=== PATIENT | male | born 1940 | race Caucasian/White ===

== ENCOUNTER → 2017-01-13 | Outpatient (CLI) | payer BC ==
[2017-01-13 15:14] LABS: BUN/CREATININE RATIO 16.66 (6-20); CALCIUM 9.4 mg/dL (8.7-10.7); SERUM ALBUMIN 4.3 g/dL (3.5-4.8)
[2017-01-13 15:15] LABS: CHOL/HDL RATIO 3.06 RATIO (0-4.0)
[2017-01-13 15:17] LABS: HEMOGLOBIN A1C 6.19 % (4.2-6.0)
[2017-01-13 15:58] LABS: CREATININE, URINE 37.5 MG/DL (15-500)
[2017-01-15 11:30] LABS: PSATOTAL 4.2 ng/mL (<=6.5)
[2017-01-15 13:51] LABS: FREE PSA/PSA RATIO 0.48 ratio (())
== END ==
LOC: LAB 08:25
PROVIDERS: ATTEND Internal Medicine
DX: E11.9 Type 2 diabetes mellitus without complications (principal); I10 Essential (primary) hypertension; E78.5 Hyperlipidemia, unspecified; N40.0 Benign prostatic hyperplasia without lower urinary tract symptoms; F17.200 Nicotine dependence, unspecified, uncomplicated
CPT/HCPCS: 80053; 80061; 82043; 82550; 83036; 84153; 84154

== ENCOUNTER 2017-01-18 09:41 | Day surgery (SDC) | payer BC, OTHER ==
[~2017-01-18 09:41] MED LIST: LIDOCAINE 2% VISCOUS(20 MG/1 ML) - 15 ML UD CUP PO ONE; LIDOCAINE W/ SODIUM BICARB 0.5 ML SYR ONE; Lactated Ringers 1,000 ML PRIMARY IV ONE
[2017-01-18] MEDS ORDERED: LIDOCAINE HCL/PF 2% (20 MG/ML) - 5 ML SYRINGE ONE (10:49)
[2017-01-18] MEDS ORDERED: LIDOCAINE 2% VISCOUS(20 MG/1 ML) - 15 ML UD CUP PO ONE (10:49)
--- NOTE | 2017-01-18 11:07 | GEN.OPNOTE ---
EGD Operative Note Surgery Date: 01/18/17 Preoperative Diagnosis: Dysphagia Postoperative Diagnosis: Benign esophageal stricture Procedure: Esophagogastroduodenoscopy with dilation Surgeon: Bhupendra Perera MD Anesthesia Provider: Kp Reyes CRNA Anesthesia Type: MAC Indications: Patient is food stick Findings: Esophagus: Patient Video EGD scope inserted posterior pharynx. Then the esophagus under direct visualization. Patient had no apparent esophagus except a benign appearing stricture at the distal esophagus. GE Junction : GE junction approximately 40 cm from incisors Fundus : Scope retroflexed on itself revealing hiatal hernia Body : Body stomach was within normal limits Prepyloric : Prepyloric area had no abnormal pathology Small Intestine : First and second portion of duodenum within normal limits The scope was brought back into the stomach balloon was then placed across the GE junction. We then progressively dilated the esophagus to 20 mm A lubricated flexible upper endoscope was inserted and passed through the esophagus and stomach into the duodenum.
[2017-01-18 11:33] VITALS: RESP 18
[2017-01-18 11:54] VITALS: TEMP 97.8
== END 2017-01-18 11:51 | disposition home or self-care (01) ==
LOC: SDSC 09:41
PROVIDERS: ATTEND Surgery
DX: R13.14 Dysphagia, pharyngoesophageal phase (principal)
CPT/HCPCS: 43249; J2704; J2001; J7120

== ENCOUNTER → 2017-03-18 | Outpatient (CLI) | payer BC ==
[2017-03-18 11:09] LABS: HEMOGLOBIN A1C 6.19 % (4.2-6.0)
[2017-03-18 11:27] LABS: CREATININE, URINE 76.8 MG/DL (15-500)
== END ==
LOC: LAB 10:40
PROVIDERS: ATTEND Internal Medicine
DX: E11.9 Type 2 diabetes mellitus without complications (principal)
CPT/HCPCS: 82043; 83036